=== PATIENT | female | born 1970 | race African-American/Black ===

== ENCOUNTER 2017-09-16 20:13 | Emergency (ER) | payer OTHER, MEDICAID ==
[~2017-09-16] VITALS: Ht 170.2 cm; Wt 77.0 kg
[2017-09-16] MEDS ORDERED: IBUPROFEN 800MG TABLET PO ONE (22:45)
[2017-09-16] MEDS ORDERED: ONDANSETRON HCL 8MG TABLET PO ONE (22:45)
[2017-09-17] LABS: BASOPHILS % 0.8 % (0.0-2.0); EOSINOPHILS % 0.9 % (0.0-5.0); HEMATOCRIT. 35.6 % (36.0-48.0); HEMOGLOBIN. 12.1 g/dL (12.0-16.0); LYMPHOCYTES % 29.8 % (20.0-50.0); MEAN CORPUSCULAR HEMOGLOBIN 29.3 pg (28.0-32.0); MEAN CORPUSCULAR VOLUME 86.1 fL (81.0-99.0); MEAN PLATELET VOLUME 7.1 fl (7.4-10.4); MONOCYTES % 4.6 % (2.0-8.0); NEUTROPHILS % 63.9 % (40.0-76.0); PLATELET 264 x1000/uL (130-400); RED BLOOD CELL COUNT 4.13 mill/uL (4.2-5.4); RED CELL DISTRIBUTION WIDTH 14.4 % (11.6-14.6)
[2017-09-17 00:06] LABS: CHLORIDE 109 mEq/L (98-107)
[2017-09-17 01:23] VITALS: BP 155/88
== END 2017-09-17 01:55 | disposition home or self-care (01) ==
LOC: ER 22:18
DX: R51 Headache (principal); R11.0 Nausea
CPT/HCPCS: 36415; 80053; 81025; 85025; 99284; Q0162

== ENCOUNTER 2020-05-15 00:39 | Emergency (ER) | payer MEDICARE, MEDICAID ==
[~2020-05-15] VITALS: Ht 170.2 cm; Wt 75.0 kg
[2020-05-15] MEDS ORDERED: HYDROCODONE/ACETAMINOPHEN 5/325MG TABLET PO STA (01:08)
[2020-05-15 04:46] VITALS: BP 116/75
== END 2020-05-15 04:48 | disposition home or self-care (01) ==
LOC: ER 00:39
DX: M25.572 Pain in left ankle and joints of left foot (principal); M25.512 Pain in left shoulder; M25.551 Pain in right hip; M25.562 Pain in left knee; W01.0XXA Fall on same level from slipping, tripping and stumbling without subsequent striking against object, initial encounter; Y93.89 Activity, other specified; Y92.89 Other specified places as the place of occurrence of the external cause; Y99.8 Other external cause status
CPT/HCPCS: 73502; 73562; 73610; 73630; 81025; 99283; 99284

== ENCOUNTER 2021-01-03 03:50 | Emergency (ER) | payer BC, MEDICAID ==
[~2021-01-03] VITALS: Ht 167.6 cm; Wt 64.0 kg
[2021-01-03] MEDS ORDERED: HYDROCODONE/ACETAMINOPHEN 5/325MG TABLET PO ONE (04:15)
[2021-01-03] MEDS ORDERED: KETOROLAC 30MG/ML VIAL IM ONE (04:15)
[2021-01-03 04:21] VITALS: BP 155/108
[2021-01-03] MEDS ORDERED: CYCL10TA7 MT (05:21)
[2021-01-03] MEDS ORDERED: NAPR-1176 MT (05:21)
== END 2021-01-03 07:09 | disposition home or self-care (01) ==
LOC: ER 03:50
DX: M54.5 Low back pain (principal)
CPT/HCPCS: 72131; 81025; 96372; 99284; J1885